=== PATIENT | male | born 1930 | race Caucasian/White ===

== ENCOUNTER 2016-06-22 15:45 | Inpatient (IN) | payer OTHER, MEDICARE ==
--- NOTE | ~2016-06-22 | CR145 ---
[facility] A Service of [facility] & [facility] RADIOLOGY TEXT RESULTS PATIENT: ROSALIA HIDALGO LOCATION: [facility] [id number] : 32 UNIT #: [id number] AGE: [address]: Kishan Atkins MD SEX: M ORDER DR: [id number] [facility] [address]. [place], [place] [address] [id number] I MR#: [id number] Acc #: [id number] NAME: ROSALIA HIDALGO : 1930 SEX: M STUDY DATE/TIME: 06/24/2016 10:38 UNIT: [facility] ROOM: [facility] STUDY DESCRIPTION: CR Hip 1 View Rt Attending Physician: Kishan Atkins M.D. Ordering Physician: Kishan Steen M.D. Primary Care Physician: Kya Mcmahon M.D. MEDICAL IMAGING REPORT This report is preliminary unless electronic signature is present EXAM Right hip, single view. HISTORY 86 year old postop right hip hemiarthroplasty for a femoral neck fracture. COMPARISON 06/22/2016 FINDINGS Single AP view of the right hip demonstrates postoperative changes of a right hip hemiarthroplasty with the femoral component in expected position and alignment. This is a cemented component. Extensive arterial vascular calcifications noted. Mild soft tissue swelling lateral hip. No visible drain. Dictated by... Esvin German M.D. THIS IS AN ELECTRONICALLY VERIFIED REPORT Esvin German M.D. at 06/24/2016 3:04 PM GITA/cari TD: 06/24/2016 14:55 JOB #: [id number] MEDICAL IMAGING REPORT COPY
--- NOTE | ~2016-06-22 | OR ---
Unit #: [id number] #: [id number] Patient: ROSALIA GARCIA C [id number] [address] [place], [place] [address] [id number] I MR#: [id number] NAME: ROSALIA GARCIA ROOM: 457 Date of Procedure: 06/24/2016 Admission Date: 06/22/2016 Surgeon: Kishan Steen M.D. : 1930 Attending Physician: Kishan Atkins M.D. Primary Care Physician: Kya Mcmahon M.D. OPERATIVE REPORT PREOPERATIVE DIAGNOSIS Right femoral neck fracture, displaced. POSTOPERATIVE DIAGNOSIS Right femoral neck fracture, displaced. PROCEDURES PERFORMED Right hip endoprosthesis through an anterior approach. DIGITAL MARKETING EXECUTIVE None. ANESTHESIA General anesthesia. COMPLICATIONS None. INDICATIONS FOR PROCEDURE Mr. Garcia is an 86-year-old demented gentleman, who fell and sustained a right femoral neck fracture. Recommendation was made to the family for right hip endoprosthesis. Risks and benefits were discussed in detail. Risks of infection, DVT, PE, dislocation, leg length discrepancy, and . Questions were answered to his satisfaction. Informed consent was obtained and placed in chart. DESCRIPTION OF PROCEDURE After the patient was identified in the preoperative holding area, the operative site was marked before the patient was brought to the operating suite and placed supine on the operating table. General endotracheal anesthesia was placed uneventfully and placed on a Hosmer hip table. Right lower extremity was then prepped and draped in the usual sterile fashion. Time-out of procedure was performed. IV antibiotics were infused. Then, the leg was prepped and draped in usual sterile fashion. Then, anterior approach to the right hip was utilized with #10 blade scalpel. TFL fascia was split longitudinally in line with the incision. TFL was mobilized laterally, sartorius medially. The anterior hip capsule was excised. The femoral neck and head were refreshed with reciprocating saw, and the femoral head was removed with tuning fork and pliers. Following this, the acetabular head was measured. It was measured 56 mm diameter. Then, the leg was externally rotated, abducted, and extended. The piriformis and posterior capsule were released. The femur subluxed anteriorly. The box Unit #: [id number] #: [id number] Patient: ROSALIA GARCIA cutter was used for initial entry point followed by the rat-tail rasp. Then, the starter broach was used and broached up to a size 13. Trial neck and head ball were placed. The hip was reduced, and it was found to be stable in all planes. Trial components removed. The canal was prepared in standard cement techniques, placed in the distal cement restrictor, irrigated, brushed, and dried. Cement was mixed, and the canal was filled retrograde and pressurized proximally. The stem was then placed in neutral anteversion and it was held in place, and cement was allowed to harden. Then, the hip was reduced with the 56, -3.5 head ball. The final implants were found to be stable in all planes. The wound was copiously irrigated with 3 L of Betadine laced normal saline followed by 3 L of normal saline using pulsatile irrigation. TFL fascia was closed with 0 Vicryl in running fashion, 2-0 Vicryl to close the deep dermis, 3-0 Monocryl followed by Dermabond skin glue to close the skin. Sterile dressing were applied. He was awakened from anesthesia and returned to recovery room in stable condition. No intraoperative complications. Dictated by... Janes Peacock/teodora TD: 06/25/2016 01:09 JOB #: [id number] OPERATIVE REPORT X Kishan Steen MD X PROCEDURE OPERATIVE NOTE
--- NOTE | ~2016-06-22 | CT4 ---
[facility] A Service of [facility] & [facility] RADIOLOGY TEXT RESULTS PATIENT: ROSALIA HIDALGO LOCATION: [facility] 457-01 : 32 UNIT #: [id number] AGE: [address]: Kishan Atikns MD SEX: M ORDER DR: [id number] [facility] [address] [facility]. [place], [place] [address] [id number] I MR#: [id number] Acc #: [id number] NAME: ROSALIA HIDALGO : 1930 SEX: M STUDY DATE/TIME: 06/26/2016 16:43 UNIT: C4B ROOM: [facility] STUDY DESCRIPTION: CT Abd and Pelv Wo Cont Attending Physician: Kishan Atkins M.D. Ordering Physician: Jigar Leonardo M.D. Primary Care Physician: Kya Mcmahon M.D. MEDICAL IMAGING REPORT This report is preliminary unless electronic signature is present EXAM CT abdomen and pelvis without contrast INDICATIONS 86-year-old male with abdominal distension and abdominal pain for [address] of the abdomen and pelvis was performed without contrast. Coronal and sagittal reformatted images were obtained. This CT exam was performed with one or more of the following radiation dose reduction techniques: automatic exposure control, adjustment of mA and/or kV according to patient size, and iterative reconstruction. COMPARISON STUDIES There are no comparison studies available. FINDINGS ABDOMEN: There are small bilateral pleural effusions, right greater than left. Cardiomegaly. There is associated bibasilar atelectasis or consolidation. Layering high-density material in the dependent portion the gallbladder may reflect layering stones or sludge. The liver is unremarkable. The spleen is unremarkable. Multiple cysts in the left kidney. There is a small cyst in the right kidney. The adrenal glands are unremarkable. The pancreas is unremarkable. There are no dilated loops of small bowel. There is mild dilatation of the infrarenal abdominal aorta measuring 2.8 cm. There is also dilatation of both common iliac arteries. The right distal common iliac artery measures 2.2 cm. The left common iliac artery measures up 2.[address] cm[address] [facility] A Service of [facility] & [facility] RADIOLOGY TEXT RESULTS PATIENT: ROSALIA HIDALGO LOCATION: [place] [address] : 32 UNIT #: [id number] AGE: [address]: Kishan Atkins MD SEX: M ORDER DR: PELVIS: There is a large amount of stool in the rectosigmoid. Remainder of the colon is dilated and filled with gas, stool and fluid. There is no colonic wall thickening. Merrill catheter in the bladder. Bone windows demonstrate a hip arthroplasty on the right. IMPRESSION 1. Large amount of stool in the rectosigmoid. The remainder of the colon is dilated and filled with gas, fluid and stool. There is no colonic wall thickening. 2. There is no evidence of small bowel obstruction. 3. 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 Mild dilatation of the infrarenal abdominal aorta. 4. Additional findings, as described. Dictated by... Linus German M.D. THIS IS AN ELECTRONICALLY VERIFIED REPORT Linus German M.D. at 06/27/2016 10:04 AM BUSHRA/jose TD: 06/26/2016 22:17 JOB #: [id number] MEDICAL IMAGING REPORT COPY
--- NOTE | ~2016-06-22 | CR72 ---
[facility] A Service of [facility] RADIOLOGY TEXT RESULTS PATIENT: ROSALIA HIDALGO LOCATION: [facility] : 32 UNIT #: [id number] AGE: [address]: Kishan Atkins MD SEX: M ORDER DR: [id number] [facility] [address] [facility]. [place], [place] [address] [id number] I MR#: [id number] Acc #: [id number] NAME: ROSALIA HIDALGO : 1930 SEX: M STUDY DATE/TIME: 06/24/2016 15:29 UNIT: [facility] ROOM: [facility] STUDY DESCRIPTION: CR Chest Single View Portable Attending Physician: Kishan Atkins M.D. Ordering Physician: Janusz Mueller M.D. Primary Care Physician: Kya Mcmahon M.D. MEDICAL IMAGING REPORT This report is preliminary unless electronic signature is present EXAM Portable chest. DATE OF EXAM 06/24/2016 HISTORY Shortness of air and weakness today. FINDINGS Moderate cardiomegaly. Pulmonary vascularity is within normal limits. Low lung volumes. Mild pleural thickening in the right apex. Moderate gaseous distension of the stomach, partly visualized in the upper abdomen. Mild right upper thoracic curve. IMPRESSION 1. Moderate cardiomegaly. 2. No airspace infiltrates or effusions are identified. 3. Low lung volumes. 4. Moderate gaseous distension of the stomach in the upper abdomen. Dictated by... Duncan Norton M.D. THIS IS AN ELECTRONICALLY VERIFIED REPORT Duncan Norton M.D. at 06/25/2016 11:30 PM JOSÉ MANUEL/ilan TD: 06/25/2016 00:08 JOB #: [id number] [facility] A Service of [facility] & [facility] RADIOLOGY TEXT RESULTS PATIENT: ROSALIA HIDALGO LOCATION: [facility] : 32 UNIT #: [id number] AGE: [address]: Kishan Atkins MD SEX: M ORDER DR: MEDICAL IMAGING REPORT COPY
--- NOTE | ~2016-06-22 | CR170 ---
[facility] A Service of [facility] & [facility] RADIOLOGY TEXT RESULTS PATIENT: ROSALIA HIDALGO LOCATION: [place] [address] : 32 UNIT #: [id number] AGE: [address]: Kishan Atkins MD SEX: M ORDER DR: [id number] [facility] [address]. [place], [place] [address] [id number] E MR#: [id number] Acc #: [id number] NAME: ROSALIA IHDALGO : 1930 SEX: M STUDY DATE/TIME: 06/22/2016 14:28 UNIT: [facility] ROOM: STUDY DESCRIPTION: CR Knee 2 Views Rt Attending Physician: Cedrick Castrejon M.D. Ordering Physician: Cedrick Castrejon M.D. Primary Care Physician: Kya Mcmahon M.D. MEDICAL IMAGING REPORT This report is preliminary unless electronic signature is present EXAM Right knee 2 views 06/22/2016 HISTORY Right leg pain after a fall. FINDINGS AP and lateral views of the right knee show marked osteopenia, degenerative change, vascular calcification, but no definite acute bony abnormality. Dictated by... Pipe Fox M.D. THIS IS AN ELECTRONICALLY VERIFIED REPORT Pipe Fox M.D. at 06/23/2016 10:39 PM TRISTON/kwabena TD: 06/22/2016 15:57 JOB #: [id number] MEDICAL IMAGING REPORT COPY
--- NOTE | ~2016-06-22 | CT52 ---
[facility] A Service of [facility] RADIOLOGY TEXT RESULTS PATIENT: ROSALIA HIDALGO LOCATION: [place] [address]- : 32 UNIT #: [id number] AGE: [address]: Kishan Atkins MD SEX: M ORDER DR: [id number] [facility] [address] [place], [place] [address] [id number] E MR#: [id number] Acc #: [id number] NAME: ROSALIA HIDALGO : 1930 SEX: M STUDY DATE/TIME: 06/22/2016 15:21 UNIT: [facility] ROOM: STUDY DESCRIPTION: CT Cervical Spine Wo Cont Attending Physician: Cedrick Castrejon M.D. Ordering Physician: Cedrick Castrejon M.D. Primary Care Physician: Kya Mcmahon M.D. MEDICAL IMAGING REPORT This report is preliminary unless electronic signature is present EXAM Cervical spine CT no contrast. DATE OF STUDY 06/22/[address]ial cervical spine CT without contrast with multiplanar reformats. This CT exam was performed with one or more of the following radiation dose reduction techniques: automatic exposure control, adjustment of mA and/or kV according to patient size, and iterative reconstruction. COMPARISON None CLINICAL HISTORY Neck pain after a fall today. FINDINGS There is fusion across the posterior elements on the left from C2 through C4. There is no fracture. There is no bone erosion or destruction. 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 There are dense atherosclerotic vascular calcifications. The lung apices are unremarkable. IMPRESSION Degenerative changes. No acute abnormality. Fusion across the left C2 through C4 articular masses, though that is probably likely degenerative. There are extensive degenerative changes but there is no evidence of fracture or other acute findings. [facility] A Service [facility] RADIOLOGY TEXT RESULTS PATIENT: ROSALIA HIDALGO LOCATION: [facility] 457 : 32 UNIT #: [id number] AGE: [address]: Kishan Atkins MD SEX: M ORDER DR: Dictated by... Pipe Fox M.D. THIS IS AN ELECTRONICALLY VERIFIED REPORT Pipe Fox M.D. at 06/23/2016 10:39 PM TRISTON/cari TD: 06/22/2016 16:50 JOB #: [id number] MEDICAL IMAGING REPORT COPY
--- NOTE | ~2016-06-22 | CO ---
Unit #: [id number] #: [id number] Patient: ROSALIA HIDALGO [id number] [address] [place], [place] [address] [id number] I MR#: [id number] NAME: ROSALIA HIDALGO. ROOM: [facility] Age: 86 Sex: M Admission Date: 06/22/2016 : 1930 Attending Physician: Kishan Atkins M.D. Primary Care Physician: Kya Mcmahon M.D. Consultation Date: 06/23/2016 CONSULTATION REPORT CHIEF COMPLAINT Patient is demented and could not add to the history. The daughter is present and stated that he fell while shopping. Apparently, he has got fairly advanced dementia, lives with his , and ambulates with help, but has very little cognitive interaction. The patient could not add further to the history. PAST MEDICAL HISTORY Remarkable for coronary artery disease status post stenting in the remote past. History of atrial fibrillation on Coumadin, hypertension, parkinsonism, arthritis, and dementia. MEDICATIONS At home include: 1. Neurontin 200 mg 3 times a day. 2. Lasix 20 mg a day. 3. Potassium 10 mEq a day. 4. Toprol 50 mg a day. 5. Synthroid 1 tablet a day. 6. Donepezil 10 mg a day. 7. Variety of vitamins. 8. He also has Tylenol with codeine p.r.n. 9. Coumadin. ALLERGIES Ciprofloxacin, unknown reaction. SOCIAL HISTORY He does not smoke. Lives at home with his . Does not drink. FAMILY HISTORY Unobtainable. REVIEW OF SYSTEMS Unobtainable. PHYSICAL EXAMINATION GENERAL APPEARANCE: Reveals a gentleman who has very little interaction. The daughter said this is near his baseline. VITAL SIGNS: He is afebrile, pulse 82, respiratory rate 20, blood pressure 107/60, 6 feet tall, and 157 pounds. HEENT: Pupils equal, round, and reactive to light. Sclerae anicteric. Head atraumatic. NECK: Supple. No supraclavicular or cervical adenopathy appreciated. Unit #: [id number] #: [id number] Patient: ROSALIA HIDALGO CHEST: Equal breath sounds. No wheeze, stridor, or consolidation. CARDIAC: Reveals distal heart tones. Regular rhythm. No definite murmur, rub, or gallop. ABDOMEN: Soft and nontender. No hepatomegaly or rebound. EXTREMITIES: Reveal no clubbing, cyanosis, or edema. No calf tenderness. There is external rotation of his right leg. NEUROLOGIC: Not performed because of his hip fracture. No unexplained focal muscle or sensory deficits noted. DIAGNOSTIC STUDIES LABORATORY: BUN and creatinine are normal. INR 2.1. CBC normal, except for a platelet count of 116. Urinalysis unremarkable. IMAGING: CT head: Age appropriate volume loss. No acute abnormality. CT scan of his neck: Degenerative changes. No acute findings. I do not see a chest x-ray report. IMPRESSION 1. Hip fracture after a fall. 2. Advanced dementia. 3. Atrial fibrillation. 4. Hypertension. 5. COPD. 6. Mild decreased platelet count, likely consumptive. PLAN 1. Okay to proceed with surgery from a medical point of view. I have discussed the case with the daughter and she is aware of the risks not only acutely perioperative, but long-term increased mortality following hip surgery. Pulmonary hygiene will be difficult and, in fact, surgery will allow ambulation and rehab. 2. I have discussed with the daughter resuscitation status. She is pretty sure that he is DNR, but will contact her mother, the patient's . I have talked with them that even if he is DNR, this will be rescinded during surgery. Dictated by... Jigar Leonardo M.D. RAYMOND/tiffany TD: 06/23/2016 12:33 JOB #: [id number] CONSULTATION REPORT X Jigar Leonardo MD CONSULTATION REPORT
--- NOTE | ~2016-06-22 | CR107 ---
[facility] A Service of [facility] & [facility] RADIOLOGY TEXT RESULTS PATIENT: ROSALIA HIDALGO LOCATION: [place] [address] : 32 UNIT #: [id number] AGE: [address]: Kishan Atkins MD SEX: M ORDER DR: [id number] [facility] [address] [place], [place] [address] [id number] E MR#: [id number] Acc #: [id number] NAME: ROSALIA HIDALGO : 1930 SEX: M STUDY DATE/TIME: 06/22/2016 14:27 UNIT: [facility] ROOM: STUDY DESCRIPTION: CR Femur 2 Views Rt Attending Physician: Cedrick Castrejon M.D. Ordering Physician: Cedrick Castrejon M.D. Primary Care Physician: Kya Mcmahon M.D. MEDICAL IMAGING REPORT This report is preliminary unless electronic signature is present EXAM Right femur series, 06/22/2016 HISTORY Trauma. Fell. Pain right leg. FINDINGS AP and lateral views of the right femur are presented. Poor quality study due to extensive bed clothing artifact overlying relevant anatomy. There is what appears to be a complete fracture at the junction of right femoral neck and head. There is probably mild impaction along the medial aspect of the fracture plane. There does not appear to be significant distraction, displacement or angulation. Fracture is best visualized on the lateral view of the hip. No other fractures are seen. There is mild to moderate degenerative change in the right hip joint. There is marked degenerative change in the right knee joint with marked narrowing of all three joint space compartments, chondrocalcinosis in the medial and lateral joint space compartments. No knee joint effusion. The visualized proximal tibia and fibula show no acute abnormality. Extensive atherosclerotic arterial calcification in large and small vessels. No soft tissue defect, subcutaneous air or radiodense foreign body. Dictated by... Curry Blankenship M.D. THIS IS AN ELECTRONICALLY VERIFIED REPORT Curry Blankenship M.D. at 06/22/2016 10:57 PM MAXIMO/rick TD: 06/22/2016 16:09 JOB #: [id number] [facility] A Service of [facility] RADIOLOGY TEXT RESULTS PATIENT: ROSALIA HIDALGO [id number] : 32 UNIT #: [id number] AGE: [address]: Kishan Atkins MD SEX: M ORDER DR: MEDICAL IMAGING REPORT COPY
--- NOTE | ~2016-06-22 | CO ---
Unit #: [id number] #: [id number] Patient: ROSALIA HIDALGO C [id number] [facility]. [place], [place] [address] [id number] I MR#: [id number] NAME: ROSALIA HIDALGO ROOM: 457 Age: 86 Sex: M Admission Date: 06/22/2016 : 1930 Attending Physician: Kishan Atkins M.D. Primary Care Physician: Kya Mcmahon M.D. Consultation Date: 06/23/2016 CONSULTATION REPORT REASON FOR CONSULT Preoperative clearance. HISTORY OF PRESENT ILLNESS This is an 86-year-old white male, new to our group with a past medical history of atrial fibrillation, age undetermined, on chronic anticoagulation with Coumadin. The patient has a history of hypertension, osteoarthritis, dementia, and Parkinson. He reportedly was diagnosed with coronary artery disease several years ago and underwent a stent possibly at [facility] or [facility]. Records have been requested, but are pending at this time. The patient presented to the hospital after sustaining a fall at the grocery store. He is somewhat of a poor historian due to dementia and Parkinson. His daughter was called and information was obtained from her as well as from nursing staff. The patient was at [facility] yesterday and went to the bathroom. He went to go pull up his pants and fell and hit his head on the wall. He fell onto his right side. There were no complaints of precipitating symptoms. However, he has had some intermittent dizziness and has "felt like he was falling while he was lying in bed." He has had a decreased appetite and some weight loss, but is unclear of the amount. There are no reports of chest pain, shortness of breath, or syncope. He does not have any lower extremity edema or complaints of palpitations. He is supposed to use a walker, but does not use it consistently. In the emergency department, his temperature was 97.2, pulse 66, respirations 13, blood pressure 96/69, O2 saturation 95% on room air. Labs reveal no acute findings except for mild thrombocytopenia. Urinalysis was negative. INR was 2.1, on Coumadin. X-ray of the right hip revealed a right mid cervical femoral neck fracture with anterior angulation and external rotation. X-ray of the right knee revealed no acute findings. CT of the head was also nonacute. He was admitted for right femoral neck fracture and Cardiology was consulted for preoperative clearance. Again, there were no complaints of chest pain. On exam, there is no evidence of congestive heart failure. The patient does not reportedly follow with Cardiology at this time. He has not been seen in several years and there are no reports of recent stress test or repeat cardiac catheterizations. PAST MEDICAL HISTORY 1. Coronary artery disease, status post PCI and stent x1 at [facility] Unit #: [id number] #: [id number] Patient: ROSALIA HIDALGO several years ago. Records unavailable. 2. Atrial fibrillation, age undetermined, but likely permanent due to controlled ventricular rate. 3. Long-term anticoagulation with Coumadin. 4. Hypertension. 5. Osteoarthritis. 6. Dementia. 7. Parkinson. 8. Skin cancer. 9. Chronic constipation. 10. Nonsmoker. PAST SURGICAL HISTORY 1. Hernia repair. 2. Knee surgery. 3. Prostate surgery. 4. Cardiac catheterization several years ago as noted above. HOME MEDICATIONS Neurontin 200 mg p.o. t.i.d.; Lasix 20 mg p.o. daily; potassium chloride 10 mEq p.o. daily with Lasix; Toprol-XL 50 mg p.o. daily; carbidopa/levodopa 25/100 one tablet p.o. daily; donepezil 10 mg p.o. daily; vitamin B12 one tablet p.o. daily; docusate sodium 100 mg p.o. daily; Tylenol/codeine one tablet p.o. b.i.d.; Coumadin 5.5 mg on Sunday, Sunday, Sunday; Coumadin 5 mg on Sunday, , Sunday, Sunday; fiber one tablet p.o. daily. ALLERGIES Cipro. SOCIAL HISTORY The patient lives in a private residence with his . He occasionally uses a walker to ambulate. He is a lifetime nonsmoker. There are no reports of alcohol or illicit drug use. FAMILY HISTORY Noncontributory. REVIEW OF SYSTEMS Difficult to obtain per the patient. Please see details in HPI. PHYSICAL EXAMINATION VITAL SIGNS: Temperature 97.8, pulse 82, blood pressure 107/60. CONSTITUTIONAL: This is an 86-year-old white male, in no acute distress. SKIN: Warm and dry. NECK: Supple. No jugular vein distention. No hepatojugular reflux. Normal carotid upstrokes. No carotid bruits auscultated. HEART: S1 and S2. Irregularly irregular. No murmurs, rubs, or gallops. LUNGS: Bilateral breath sounds have good air entry throughout all lung hill. Respirations are even and nonlabored. No rales, rhonchi, or wheezes. ABDOMEN: Soft, nontender, and nondistended. Positive bowel sounds auscultated x4 quadrants. No ascites noted. EXTREMITIES: Bilateral lower extremities have no pretibial pitting edema. DP and PT pulses are 2+. Capillary refill is less than 3 seconds. DIAGNOSTIC STUDIES LABORATORY RESULTS: White blood cell count 9, hemoglobin 14.5, hematocrit Unit #: [id number] #: [id number] Patient: MURRAY HIDALGOOLPH C 44.2, platelets 116. Sodium 138, potassium 3.8, chloride 100, CO2 of 30, BUN 21, creatinine 0.9, glucose 135. INR 2.1. Urinalysis negative. IMAGING STUDIES: X-ray of the right hip reveals right mid cervical femoral neck fracture with anterior angulation and external rotation. Slight varus deformity. X-ray of the right knee reveals osteopenia with degenerative changes and calcification. No acute findings. CT of the head without contrast reveals moderate nonspecific chronic white matter changes. No acute findings. CT of the cervical spine reveals no acute findings. CARDIOVASCULAR STUDIES: EKG reveals atrial fibrillation with a ventricular rate of 81 beats per minute. Left axis deviation. Right bundle branch block. Q-waves in the inferior leads. QTc 478 milliseconds. IMPRESSION 1. Status post fall with right mid cervical femoral neck fracture. 2. Atrial fibrillation with controlled ventricular rate, likely permanent. 3. History of coronary artery disease, status post percutaneous coronary intervention and stent several years ago at [facility]. Records pending. 4. Chronic anticoagulation with Coumadin. 5. Therapeutic INR. 6. Hypertension. 7. Dementia. 8. Parkinson. 9. Mild thrombocytopenia. PLAN 1. The patient presented to the hospital after sustaining a fall. He was admitted for right femoral neck fracture and Cardiology was consulted for preoperative clearance. 2. There are no reports of chest pain that the patient is a poor historian. There is no evidence of congestive heart failure on exam. 3. The patient's INR is 2.1, on Coumadin. His Coumadin has been placed on hold. 4. The patient will be transfused 2 units of FFP. We will recheck a PT/INR 1 hour after the FFP is given. 5. 2D echocardiogram will be ordered to assess LV function and valves. The patient will be continued on metoprolol for heart rate control and preoperative management. 6. He is okay to undergo surgery at a low to moderate, but acceptable risk. 7. Records have been requested from [facility]. Dictated by... CORNELIA Bansal TD: 06/25/2016 04:15 JOB #: [id number] CC: [facility] Unit #: [id number] #: [id number] Patient: MURRAY HIDALGOOLPH Geetha CONSULTATION REPORT X X CONSULTATION REPORT
--- NOTE | ~2016-06-22 | DS ---
Unit #: [id number] #: [id number] Patient: ROSALIA HIDALGO [id number] [address] [address] [id number] I MR#: [id number] NAME: ROSALIA HIDALGO. ROOM: [facility] Age: 86 Sex: M Admission Date: 06/22/2016 : 1930 Discharge Date: 06/30/2016 Attending Physician: Kishan Atkins M.D. Primary Care Physician: Kya Mcmahon M.D. DISCHARGE SUMMARY DISCHARGE DIAGNOSES 1. Right femoral neck fracture, displaced status post right hip endoprosthesis. 2. Left ventricular dysfunction with an ejection fraction of approximately 30%. 3. Profound dementia. 4. DO NOT RESUSCITATE status. 5. Hyponatremia, improved. 6. Hypophosphatemia, replaced. 7. Hypokalemia, replaced and improved. 8. Coronary artery disease status post remote stents. 9. Atrial fibrillation on Coumadin. 10. History of hypertension, now somewhat borderline hypotensive, cardiology meds adjusted per Cardiology. 11. History of Parkinsonism. 12. History of arthritis. DISCHARGE MEDICATIONS 1. Lactulose 20 grams daily p.r.n. for constipation. 2. Tylenol 325 mg q.i.d. p.r.n. 3. Coumadin as per protime until approximately INR of 2.5. Dose adjusted per protime. 4. Neurontin 200 mg three times a day. 5. FiberCon 625 mg daily. 6. Senokot one tablet twice a day. 7. Aricept 10 mg a day. 8. Sinemet 25/100 mg one tablet daily. 9. Hydrocodone 7.5/325 mg q.i.d. p.r.n. severe pain. CODE STATUS DNR status. DIET Mechanical soft, thin liquids. ACTIVITY Hopefully will improve with PT/OT. Continue Merrill catheter for now until increased ambulation. Oxygen to sats greater than 90%, check room air needs discharge. FOLLOWUP 1. Dr. Mcmahon after discharge after rehab. 2. Dr. Chapa of Orthopaedic Surgery as his request. Unit #: [id number] #: [id number] Patient: ROSALIA HIDALGO 3. Cardiology per their request. 4. Would suggest monitoring protimes as long as he is on Coumadin. Targeted INR approximately 2.5. DESCRIPTION OF HOSPITALIZATION The patient was admitted to the emergency room after a fall with right hip fracture. Cardiology saw the patient in consultation. Echocardiogram revealed an EF of 30%. He was stabilized, underwent surgery which was uneventful. Postop course complicated by constipation. Dr. Mueller put the patient on lactulose. CT scan revealed significant stool in the rectum. He was disimpacted, had a Fleets enema and really had no difficulty after that. He had some mild hypoxemia easily controlled on nasal cannula oxygen likely secondary to atelectasis. He did receive intermittent Lasix. Would consider daily Lasix once intake improves. He had some electrolyte abnormalities which were corrected. He had significant encephalopathy postop with just lethargy and confusion, felt to be toxic metabolic, but he improved. He was not quite at baseline per his but certainly was much better and nearing baseline. Overall, he was doing better and is transferred to rehab. The family is aware, given his advanced dementia, that long-term prognosis remains guarded. Dictated by... Jigar Leonardo M.D. RAYMOND/lea TD: 06/30/2016 12:27 JOB #: [id number] DISCHARGE SUMMARY X Jigar Leonardo MD X DISCHARGE SUMMARY
--- NOTE | ~2016-06-22 | CT71 ---
[facility] A Service [facility] RADIOLOGY TEXT RESULTS PATIENT: ROSALIA HIDALGO LOCATION: [facility] 457 : 32 UNIT #: [id number] AGE: [address]: Kishan Atkins MD SEX: M ORDER DR: [id number] [address] [address] [id number] E MR#: [id number] Acc #: [id number] NAME: ROSALIA HIDALGO : 1930 SEX: M STUDY DATE/TIME: 06/22/2016 15:15 UNIT: [facility] ROOM: STUDY DESCRIPTION: CT Head Wo Contrast Attending Physician: Cedrick Castrejon M.D. Ordering Physician: Cedrick Castrejon M.D. Primary Care Physician: Kya Mcmahon M.D. MEDICAL IMAGING REPORT This report is preliminary unless electronic signature is present EXAM Head CT no contrast DATE OF EXAMINATION 06/22/2016 HISTORY Posterior head and neck pain after fall today. PROCEDURE Axial unenhanced head CT. This CT exam was performed with one or more of the following radiation dose reduction techniques: automatic exposure control, adjustment of mA and/or kV according to patient size, and iterative reconstruction. COMPARISON STUDIES None FINDINGS The skull base and calvarium are normal. There is no intracranial hemorrhage. There is chronic nonspecific white matter change and volume loss but no hydrocephalus or extraaxial fluid collection. The extracranial soft tissues are unremarkable. IMPRESSION Age appropriate volume loss, moderate nonspecific chronic white matter change. No acute abnormality. Specifically, no fracture or evidence of acute intracranial injury. Dictated by... Pipe Fox M.D. [facility] A Service [facility] RADIOLOGY TEXT RESULTS PATIENT: ROSALIA HIDALGO LOCATION: [facility] 457 : 32 UNIT #: [id number] AGE: [address]: Kishan Atkins MD SEX: M ORDER DR: THIS IS AN ELECTRONICALLY VERIFIED REPORT Pipe Fox M.D. at 06/23/2016 10:39 PM TRISTON/kwabena TD: 06/22/2016 16:36 JOB #: [id number] MEDICAL IMAGING REPORT COPY
--- NOTE | ~2016-06-22 | CR151 ---
[facility] A Service of [facility] RADIOLOGY TEXT RESULTS PATIENT: ROSALIA HIDALGO LOCATION: [facility] [address] : 32 UNIT #: [id number] AGE: [address]: Kishan Atkins MD SEX: M ORDER DR: [id number] [facility] [address] [facility]. [place], [place] [address] [id number] I MR#: [id number] Acc #: [id number] NAME: ROSALIA HIDALGO. : 1930 SEX: M STUDY DATE/TIME: 06/22/2016 14:25 UNIT: [facility] ROOM: [facility] STUDY DESCRIPTION: CR Hip Min 2 Views Rt Attending Physician: Kishan Atkins M.D. Ordering Physician: Cedrick Castrejon M.D. Primary Care Physician: Kya Mcmahon M.D. MEDICAL IMAGING REPORT This report is preliminary unless electronic signature is present EXAM AP pelvis, 1 view, 06/22/2016 HISTORY Right leg pain after fall today. FINDINGS There is a right mid-cervical femoral neck fracture with apex anterior angulation, as well as external rotation and slight varus deformity. Dictated by... Pipe Fox M.D. THIS IS AN ELECTRONICALLY VERIFIED REPORT Pipe Fox M.D. at 06/23/2016 10:39 PM TEV/pcl TD: 06/22/2016 16:01 JOB #: [id number] MEDICAL IMAGING REPORT COPY
--- NOTE | ~2016-06-22 | EKG ---
PATIENT: ROSALIA HIDALGO UNIT #: [id number] Ventricular Rate: 81 BPM Atrial Rate: 71 BPM QRS Duration: 158 ms Q-T Interval: 412 ms QTC Calculation(Bezet): 478 ms Calculated R Boyle: -85 degrees Calculated T Boyle: 62 degrees Diagnosis Line: Atrial fibrillation Diagnosis Line: Left axis deviation Diagnosis Line: Right bundle branch block Diagnosis Line: Inferior infarct , age undetermined Diagnosis Line: Abnormal ECG Diagnosis Line: No previous ECGs available Diagnosis Line: Confirmed by RENEE ANDREW MD ([id number]) on 06/25/2016 Diagnosis Line: 2:44:37 PM INTERPRETING MD: KAMRAN ROA
--- NOTE | ~2016-06-22 | CR63 ---
[facility] A Service of [facility] RADIOLOGY TEXT RESULTS PATIENT: ROSALIA HIDALGO LOCATION: [place] [address]- : 32 UNIT #: [id number] AGE: [address]: Kishan Atkins MD SEX: M ORDER DR: [id number] [facility] [address] [facility]. [place], [place] [address] [id number] I MR#: [id number] Acc #: [id number] NAME: ROSALIA HIDALGO : 1930 SEX: M STUDY DATE/TIME: 06/26/2016 16:57 UNIT: [facility] ROOM: [facility] STUDY DESCRIPTION: CR Chest 2 View Attending Physician: Kishan Atkins M.D. Ordering Physician: Jigar Leonardo M.D. Primary Care Physician: Kya Mcmahon M.D. MEDICAL IMAGING REPORT This report is preliminary unless electronic signature is present EXAM PA and lateral chest INDICATIONS 86-year-old male with low oxygen saturations today. Comparison with 06/24/2016. FINDINGS Exam is limited due to patient rotation. There is no obvious new infiltrate. Heart size does not appear significantly changed. IMPRESSION Limited examination due to patient rotation. No obvious significant change or new infiltrate. Dictated by... Linus German M.D. THIS IS AN ELECTRONICALLY VERIFIED REPORT Linus German M.D. at 06/27/2016 10:04 AM ARS/vicente TD: 06/26/2016 23:13 JOB #: [id number] MEDICAL IMAGING REPORT COPY
[2016-06-22 14:47] LABS: INR 2.2; PROTHROMBIN TIME (PATIENT) 23.5 SECONDS (9.6-11.5)
[2016-06-22 14:58] LABS: BASOPHIL# 0.1 X10e3 (0-0.3); BASOPHIL% 1.4 % (0-2.5); EOSINOPHIL# 0.2 X10e3 (0-0.7); EOSINOPHIL% 4.7 % (0.0-7.0); HEMATOCRIT 44.2 % (38.0-50.0); HEMOGLOBIN 14.4 gm/dL (13.0-16.0); LYMPHOCYTE# 2.2 X10e3 (1.0-3.5); LYMPHOCYTE% 44.5 % (17.0-45.0); MEAN CELL VOLUME 93.6 FL (83-96); MEAN CORPUSCULAR HEMOGLOBIN 30.5 PG (28-34); MEAN CORPUSCULAR HGB CONC 32.6 g/dL (30-36); MONOCYTE# 0.4 X10e3 (0-1.0); MONOCYTE% 7.6 % (3.0-12.0); NEUTROPHIL# 2.1 X10e3 (1.5-7.1); NEUTROPHIL% 41.8 % (40-75); RED BLOOD COUNT 4.73 X10e (3.90-5.60)
[2016-06-22 15:19] LABS: DIFF IND NO; PLATELET COUNT 118 X10e3 (140-420)
[2016-06-22 15:44] LABS: BLOOD UREA NITROGEN 22 mg/dL (9-23); CALCIUM SERUM 8.8 mg/dL (8.4-10.2); CARBON DIOXIDE 33 mmol/L (22-31); CHLORIDE 101 mmol/L (100-111); CREATININE SERUM 1.1 mg/dL (0.6-1.4); GLOM FILT RATE Estimated ABOVE60 mL/min (>60); GLUCOSE FASTING 111 mg/dL (70-110); POTASSIUM 3.6 mmol/L (3.5-5.1); SODIUM 139 mmol/L (135-145)
[2016-06-22] MEDS ORDERED: NEURONTIN PO (16:37)
[2016-06-22] MEDS ORDERED: LASIX20 MG PO (16:38)
[2016-06-22] MEDS ORDERED: KLOR-CON SPRIN10 MEQ PO (16:38)
[2016-06-22] MEDS ORDERED: TOPROL XL 50 MG50 MG PO (16:39)
[2016-06-22] MEDS ORDERED: CARBIDOPA-LEVO1 TA1 PO (16:46)
[2016-06-22] MEDS ORDERED: DONEPEZIL HCL10 MG PO (16:47)
[2016-06-22] MEDS ORDERED: VITAMIN B122500 MCG PO (16:49)
[2016-06-22] MEDS ORDERED: STOOL SOFTENER100 M1 PO (16:52)
[2016-06-22] MEDS ORDERED: TYLENOL #3 PO (16:54)
[2016-06-22] MEDS ORDERED: COUMADIN PO (16:55)
[2016-06-22] MEDS ORDERED: COUMADIN5 MG PO (16:57)
[2016-06-22] MEDS ORDERED: FIBER CHOICE PO (17:02)
[2016-06-22] MEDS ORDERED: SODIUM CHLORIDE OU ×2 (18:58→19:00)
[2016-06-22 19:11] LABS: URINE SOURCE CLEAN CATCH
[2016-06-22 19:18] LABS: URINE APPEARANCE CLEAR; URINE BILIRUBIN NEG (NEG); URINE BLOOD NEG (NEG); URINE COLOR DK YELLOW; URINE GLUCOSE NEG (NEG); URINE KETONE TRACE (NEG); URINE LEUKOCYTE ESTERASE NEG (NEG); URINE NITRATE NEG (NEG); URINE PROTEIN NEG (NEG); URINE SPECIFIC GRAVITY 1.026 (1.003-1.035)
[2016-06-22 19:42] LABS: CULTURE INDICATED? NO
[2016-06-23 03:17] LABS: BASOPHIL% 0.5 % (0-2.5); EOSINOPHIL% 0.5 % (0.0-7.0); HEMATOCRIT 44.2 % (38.0-50.0); HEMOGLOBIN 14.5 gm/dL (13.0-16.0); LYMPHOCYTE# 1.4 X10e3 (1.0-3.5); LYMPHOCYTE% 15.7 % (17.0-45.0); MEAN CELL VOLUME 93.6 FL (83-96); MEAN CORPUSCULAR HEMOGLOBIN 30.7 PG (28-34); MEAN CORPUSCULAR HGB CONC 32.7 g/dL (30-36); MEAN PLATELET VOLUME 11.1 FL (6.5-11.5); MONOCYTE# 0.9 X10e3 (0-1.0); MONOCYTE% 9.8 % (3.0-12.0); NEUTROPHIL# 6.6 X10e3 (1.5-7.1); NEUTROPHIL% 73.5 % (40-75); PLATELET COUNT 116 X10e3 (140-420); RED BLOOD COUNT 4.72 X10e (3.90-5.60); RED CELL DISTRIBUTION WIDTH 14.1 % (11.0-15.5)
[2016-06-23 03:27] LABS: INR 2.1; PROTHROMBIN TIME (PATIENT) 23.1 SECONDS (9.6-11.5)
[2016-06-23 03:32] LABS: DIFF IND NO
[2016-06-23 03:40] LABS: BLOOD UREA NITROGEN 21 mg/dL (9-23); BUN/CREATININE RATIO 23.33; CALCIUM SERUM 8.8 mg/dL (8.4-10.2); CARBON DIOXIDE 30 mmol/L (22-31); CHLORIDE 100 mmol/L (100-111); CREATININE SERUM 0.9 mg/dL (0.6-1.4); GLOM FILT RATE Estimated ABOVE60 mL/min (>60); GLUCOSE FASTING 135 mg/dL (70-110); POTASSIUM 3.8 mmol/L (3.5-5.1); SODIUM 138 mmol/L (135-145)
[2016-06-23 18:08] LABS: INR 1.5; PROTHROMBIN TIME (PATIENT) 15.8 SECONDS (9.6-11.5)
[2016-06-24 03:43] LABS: BASOPHIL% 0.5 % (0-2.5); EOSINOPHIL% 0.4 % (0.0-7.0); HEMATOCRIT 40.8 % (38.0-50.0); HEMOGLOBIN 13.4 gm/dL (13.0-16.0); LYMPHOCYTE# 0.8 X10e3 (1.0-3.5); LYMPHOCYTE% 8.5 % (17.0-45.0); MEAN CELL VOLUME 92.8 FL (83-96); MEAN CORPUSCULAR HEMOGLOBIN 30.5 PG (28-34); MEAN CORPUSCULAR HGB CONC 32.8 g/dL (30-36); MEAN PLATELET VOLUME 11.3 FL (6.5-11.5); MONOCYTE# 0.6 X10e3 (0-1.0); MONOCYTE% 7.2 % (3.0-12.0); NEUTROPHIL# 7.4 X10e3 (1.5-7.1); NEUTROPHIL% 83.4 % (40-75); RED BLOOD COUNT 4.39 X10e (3.90-5.60); RED CELL DISTRIBUTION WIDTH 14.1 % (11.0-15.5); WHITE BLOOD COUNT 8.9 X10e3 (4.0-10.5)
[2016-06-24 03:46] LABS: INR 1.4; PROTHROMBIN TIME (PATIENT) 15.1 SECONDS (9.6-11.5)
[2016-06-24 03:47] LABS: BLOOD UREA NITROGEN 29 mg/dL (9-23); CALCIUM SERUM 8.3 mg/dL (8.4-10.2); CARBON DIOXIDE 29 mmol/L (22-31); CHLORIDE 94 mmol/L (100-111); GLOM FILT RATE Estimated ABOVE60 mL/min (>60); GLUCOSE FASTING 110 mg/dL (70-110); MAGNESIUM 1.2 mg/dL (1.6-3.0); PHOSPHOROUS 2.4 mg/dL (2.5-4.6); POTASSIUM 3.5 mmol/L (3.5-5.1); SODIUM 132 mmol/L (135-145)
[2016-06-24 04:23] LABS: DIFF IND YES; PLATELET COUNT 92 X10e3 (140-420)
[2016-06-24 04:42] LABS: PLATELET ESTIMATE DECREASED (NORMAL)
[2016-06-24 21:57] LABS: URINE SOURCE CLEAN CATCH
[2016-06-24 22:16] LABS: URINE APPEARANCE CLOUDY; URINE BLOOD NEG (NEG); URINE COLOR DK YELLOW; URINE GLUCOSE NEG (NEG); URINE KETONE NEG (NEG); URINE LEUKOCYTE ESTERASE TRACE (NEG); URINE NITRATE NEG (NEG); URINE PROTEIN 1+ (NEG); URINE SPECIFIC GRAVITY 1.027 (1.003-1.035)
[2016-06-24 22:19] LABS: URINE BACTERIA AUWI NEG (NEGATIVE); URINE SQUAMOUS EPITHELIAL CELL OCC /[HPF]
[2016-06-24 22:47] LABS: CULTURE INDICATED? NO; URINE BILIRUBIN POS (NEG)
[2016-06-25 04:02] LABS: INR 1.1; PROTHROMBIN TIME (PATIENT) 11.8 SECONDS (9.6-11.5)
[2016-06-25 04:14] LABS: HEMATOCRIT 39.2 % (38.0-50.0); HEMOGLOBIN 12.9 gm/dL (13.0-16.0); MEAN CORPUSCULAR HEMOGLOBIN 30.6 PG (28-34); MEAN CORPUSCULAR HGB CONC 32.9 g/dL (30-36); MEAN PLATELET VOLUME 11.2 FL (6.5-11.5); RED BLOOD COUNT 4.21 X10e (3.90-5.60); RED CELL DISTRIBUTION WIDTH 13.9 % (11.0-15.5); WHITE BLOOD COUNT 8.5 X10e3 (4.0-10.5)
[2016-06-25 04:15] LABS: BUN/CREATININE RATIO 28.46; CALCIUM SERUM 7.8 mg/dL (8.4-10.2); CREATININE SERUM 1.3 mg/dL (0.6-1.4); GLOM FILT RATE Estimated 55.9 mL/min (>60); MAGNESIUM 1.6 mg/dL (1.6-3.0); POTASSIUM 3.9 mmol/L (3.5-5.1)
[2016-06-26 03:34] LABS: BLOOD UREA NITROGEN 42 mg/dL (9-23); CARBON DIOXIDE 26 mmol/L (22-31); CHLORIDE 96 mmol/L (100-111); CREATININE SERUM 1.2 mg/dL (0.6-1.4); GLOM FILT RATE Estimated ABOVE60 mL/min (>60); GLUCOSE FASTING 122 mg/dL (70-110); HEMATOCRIT 36.3 % (38.0-50.0); HEMOGLOBIN 12.2 gm/dL (13.0-16.0); MAGNESIUM 1.6 mg/dL (1.6-3.0); MEAN CELL VOLUME 92.2 FL (83-96); MEAN CORPUSCULAR HGB CONC 33.6 g/dL (30-36); MEAN PLATELET VOLUME 11.6 FL (6.5-11.5); POTASSIUM 3.7 mmol/L (3.5-5.1); RED BLOOD COUNT 3.93 X10e (3.90-5.60); RED CELL DISTRIBUTION WIDTH 13.8 % (11.0-15.5); SODIUM 129 mmol/L (135-145); WHITE BLOOD COUNT 9.3 X10e3 (4.0-10.5)
[2016-06-26 03:35] LABS: INR 1.1
[2016-06-26 16:56] LABS: SODIUM URINE RANDOM <10 mmol/L
[2016-06-26 17:09] LABS: OSMOLALITY,URINE 568 mOsmo/kg (250-900)
[2016-06-27 03:12] LABS: HEMATOCRIT 34.8 % (38.0-50.0); HEMOGLOBIN 11.8 gm/dL (13.0-16.0); MEAN CELL VOLUME 91.8 FL (83-96); MEAN CORPUSCULAR HEMOGLOBIN 31.1 PG (28-34); MEAN CORPUSCULAR HGB CONC 33.9 g/dL (30-36); MEAN PLATELET VOLUME 11.7 FL (6.5-11.5); RED BLOOD COUNT 3.79 X10e (3.90-5.60); RED CELL DISTRIBUTION WIDTH 13.6 % (11.0-15.5); WHITE BLOOD COUNT 8.1 X10e3 (4.0-10.5)
[2016-06-27 03:20] LABS: INR 1.6; PROTHROMBIN TIME (PATIENT) 16.7 SECONDS (9.6-11.5)
[2016-06-27 03:48] LABS: BLOOD UREA NITROGEN 42 mg/dL (9-23); BUN/CREATININE RATIO 38.18; CALCIUM SERUM 8.3 mg/dL (8.4-10.2); CARBON DIOXIDE 24 mmol/L (22-31); CHLORIDE 95 mmol/L (100-111); CREATININE SERUM 1.1 mg/dL (0.6-1.4); GLOM FILT RATE Estimated ABOVE60 mL/min (>60); GLUCOSE FASTING 123 mg/dL (70-110); MAGNESIUM 2.4 mg/dL (1.6-3.0); PHOSPHOROUS 2.4 mg/dL (2.5-4.6); POTASSIUM 3.1 mmol/L (3.5-5.1); SODIUM 129 mmol/L (135-145)
[2016-06-28 02:50] LABS: HEMATOCRIT 31.4 % (38.0-50.0); HEMOGLOBIN 10.7 gm/dL (13.0-16.0); MEAN CORPUSCULAR HEMOGLOBIN 30.9 PG (28-34); MEAN PLATELET VOLUME 11.1 FL (6.5-11.5); RED BLOOD COUNT 3.45 X10e (3.90-5.60); WHITE BLOOD COUNT 6.8 X10e3 (4.0-10.5)
[2016-06-28 03:07] LABS: BLOOD UREA NITROGEN 32 mg/dL (9-23); BUN/CREATININE RATIO 35.55; CALCIUM SERUM 7.8 mg/dL (8.4-10.2); CARBON DIOXIDE 27 mmol/L (22-31); CHLORIDE 101 mmol/L (100-111); CREATININE SERUM 0.9 mg/dL (0.6-1.4); GLOM FILT RATE Estimated ABOVE60 mL/min (>60); GLUCOSE FASTING 109 mg/dL (70-110); MAGNESIUM 2.5 mg/dL (1.6-3.0); POTASSIUM 4.1 mmol/L (3.5-5.1); SODIUM 132 mmol/L (135-145)
[2016-06-28 03:15] LABS: INR 2.5
[2016-06-29 03:20] LABS: INR 2.9; PROTHROMBIN TIME (PATIENT) 31.3 SECONDS (9.6-11.5)
[2016-06-29 03:39] LABS: BLOOD UREA NITROGEN 27 mg/dL (9-23); CALCIUM SERUM 7.7 mg/dL (8.4-10.2); CARBON DIOXIDE 31 mmol/L (22-31); CHLORIDE 100 mmol/L (100-111); CREATININE SERUM 0.9 mg/dL (0.6-1.4); GLOM FILT RATE Estimated ABOVE60 mL/min (>60); GLUCOSE FASTING 101 mg/dL (70-110); MAGNESIUM 2.2 mg/dL (1.6-3.0); PHOSPHOROUS 2.4 mg/dL (2.5-4.6); POTASSIUM 3.4 mmol/L (3.5-5.1); SODIUM 132 mmol/L (135-145)
[2016-06-30 03:50] LABS: PROTHROMBIN TIME (PATIENT) 44.1 SECONDS (9.6-11.5)
[2016-06-30 04:06] LABS: BLOOD UREA NITROGEN 33 mg/dL (9-23); CALCIUM SERUM 8.3 mg/dL (8.4-10.2); CARBON DIOXIDE 29 mmol/L (22-31); CHLORIDE 100 mmol/L (100-111); GLOM FILT RATE Estimated ABOVE60 mL/min (>60); GLUCOSE FASTING 96 mg/dL (70-110); MAGNESIUM 1.9 mg/dL (1.6-3.0); POTASSIUM 4.6 mmol/L (3.5-5.1); SODIUM 138 mmol/L (135-145)
== END 2016-06-30 14:55 | DRG 470 ==
LOC: CED 15:45 → CEDOF 16:42 → C4B 20:01
PROVIDERS: Emergency Medicine; Family Medicine Sleep Medicine; Internal Medicine; Internal Medicine Cardiovascular Disease; Nurse Practitioner; Nurse Practitioner Family; Specialist
PROC: 30233L1 Transfusion of Nonautologous Fresh Plasma into Peripheral Vein, Percutaneous Approach (ICD-10-PCS; principal; 2016-06-22)
PROC: 30233K1 Transfusion of Nonautologous Frozen Plasma into Peripheral Vein, Percutaneous Approach (ICD-10-PCS; 2016-06-22)
PROC: 0SRR0J9 Replacement of Right Hip Joint, Femoral Surface with Synthetic Substitute, Cemented, Open Approach (ICD-10-PCS; 2016-06-23)
PROC: B246YZZ Ultrasonography of Right and Left Heart using Other Contrast (ICD-10-PCS; 2016-06-23)
DX: S72.001A Fracture of unspecified part of neck of right femur, initial encounter for closed fracture (principal); F03.90 Unspecified dementia, unspecified severity, without behavioral disturbance, psychotic disturbance, mood disturbance, and anxiety; D69.6 Thrombocytopenia, unspecified; E87.1 Hypo-osmolality and hyponatremia; I11.0 Hypertensive heart disease with heart failure; I50.22 Chronic systolic (congestive) heart failure; I48.91 Unspecified atrial fibrillation; I47.1 Supraventricular tachycardia; E83.39 Other disorders of phosphorus metabolism; G20 Parkinson's disease; I25.10 Atherosclerotic heart disease of native coronary artery without angina pectoris; Z95.5 Presence of coronary angioplasty implant and graft; Z79.01 Long term (current) use of anticoagulants; K59.09 Other constipation; Z66 Do not resuscitate; E87.6 Hypokalemia
CPT/HCPCS: 36415; 70450; 71010; 71020; 72125; 73501; 73502; 73552; 73560; 74176; 80048; 81003; 83735; 83880; 83935; 84100; 84300; 85025; 85027; 85610; 85730; 86900; 86901; 87040; 92526; 92610; 93005; 93306; 94760; 97110; 97116; 97162; 97530; 99285; C1776; G8978-GP; G8979-GP; G8980-GP; G8996-GN; G8997-GN; J0282; J0690; J1940; J2270; J2405; J3010; J3370; J3430; J3475; J3480; P9059